=== PATIENT | female | born 1980 | race Caucasian/White ===

== ENCOUNTER 2022-12-15 16:37 | Outpatient (CLI) | payer OTHER, SELFPAY ==
[2022-12-15 14:05] LABS: Chloride* 106 mmol/L (96-114); Sodium* 140 mmol/L (135-149)
[2022-12-15 14:06] LABS: Potassium* 4.6 mmol/L (3.6-5.1)
[2022-12-15 14:08] LABS: Blood Urea Nitrogen* 18 mg/dL (5-24); Carbon Dioxide* 29 mmol/L (20-32); Cholesterol* 181 mg/dL (90-199); Creatinine* 0.8 mg/dL (0.5-1.5); Estimated Glomerular Filt Rate 94 ml/min; Glucose* 96 mg/dL (60-115)
[2022-12-15 14:09] LABS: Calcium* 8.8 mg/dL (8.4-10.6); HDL Cholesterol* 65 mg/dL (>=50); LDL Cholesterol Calculated 100 mg/dL (<100); Triglycerides* 80 mg/dL (40-149)
== END 2022-12-15 16:38 | disposition home or self-care (01) ==
PROVIDERS: PCP Emergency Medicine; Visit Provider Emergency Medicine
DX: D69.3 Immune thrombocytopenic purpura (principal); E78.1 Pure hyperglyceridemia
CPT/HCPCS: 80048; 80061

== ENCOUNTER 2023-02-15 13:47 | Outpatient (REF) | payer OTHER, SELFPAY ==
[2023-02-15 14:18] LABS: Appearance Urine Clear (Clear); Bilirubin Urine Negative (Negative); Blood Urine Negative (Negative); Color Urine Yellow (Yellow); Glucose Urine Negative (Negative); Ketones Urine Negative (Negative); Leukocyte Esterase Urine Negative (Negative); Nitrite Urine Negative (Negative); Protein Urine Negative (Negative); Specific Gravity Urine 1.015 (1.000-1.030); Urobilinogen Urine 0.2 (0.2-1.0); pH Urine 7.5 (5.0-8.5)
[2023-02-15 14:19] LABS: Basophils Percent Auto 0.9 % (0.0-3.0); Eosinophils Percent Auto 1.3 % (0.0-7.0); Hematocrit 40.8 % (33.0-51.0); Hemoglobin* 13.6 gm/dL (12.0-16.0); Immature Granulocytes Pct Auto 0.3 %; Lymphocytes Percent Auto 32.8 % (20-44); Mean Corpuscular HGB Conc 33 gm/dL (32-36); Mean Corpuscular Hemoglobin 29 pg (26-34); Mean Corpuscular Volume 88 fL (80-100); Monocytes Percent Auto 11.4 % (0.0-11.0); Neutrophils Percent Auto 53.3 % (42.0-72.0); Platelet Count* 67 K/uL (140-440); RDW Coefficient of Variation % 12.1 % (11.5-15.5); Red Blood Count 4.64 m/uL (4.00-5.20); White Blood Count* 3.17 K/uL (4.50-11.00)
[2023-02-15 14:28] LABS: Creatinine* 0.7 mg/dL (0.5-1.5); Estimated Glomerular Filt Rate 109 ml/min
[2023-02-15 14:29] LABS: Aspartate Amino Transferase* 47 U/L (12-35)
[2023-02-15 14:36] LABS: Slide Review Reflex Yes
[2023-02-15 14:38] LABS: C Reactive Protein* < 0.5 mg/dL (0.5-1.0)
[2023-02-15 14:39] LABS: RBC Urine 0-2 (0-2); Squamous Epithelial Cell Urine Few (None-Few); WBC Urine 0-2 (0-5)
[2023-02-15 14:44] LABS: Slide Review Acceptable Review (Acceptable)
[2023-02-16 21:58] LABS: Complement Component 4 15 mg/dL (10-40)
== END 2023-02-15 13:48 | disposition home or self-care (01) ==
LOC: NPINS 13:47
PROVIDERS: PCP Emergency Medicine
DX: M35.00 Sjogren syndrome, unspecified (principal)
CPT/HCPCS: 81001; 82565; 84450; 85025; 86140; 86160

== ENCOUNTER 2023-04-26 15:08 | Outpatient (CLI) | payer OTHER, SELFPAY ==
--- NOTE | 2023-04-26 15:20 | CRLHL7_ITS ---
For Patients: As a result of the Cures Act, medical imaging exams and procedure reports are released immediately into your electronic medical record. You may view this report before your referring provider. If you have questions, please contact your health care provider. BILATERAL SCREENING MAMMOGRAM WITH COMPUTER-AIDED DETECTION AND TOMOSYNTHESIS TECHNIQUE: CC and MLO views were obtained. These mammographic images have been obtained using full-field digital technique. These mammographic images were interpreted with the benefit of computer-aided detection. Breast tomosynthesis was used in this interpretation. COMPARISON FILM: 11/04/19, 01/22/18. FINDINGS: The breasts are extremely dense, which lowers the sensitivity of mammography. IMPRESSION: There is no radiographic evidence for malignancy. ASSESSMENT: BI-RADS Category 1: Negative RECOMMENDATION: Routine screening mammogram in 1 year. A lay language report of this examination will be provided to the patient. DAR MAY M.D. Diagnostic/Nuclear Medicine Radiologist [email or web address] JAYDEN:[email or web address] Transcribed: 04/27/2023, 2:[address]/Dictated by: Dar May MD @ 04/27/2023 8:52:00 AM (Electronically Signed)
== END 2023-04-26 15:09 | disposition home or self-care (01) ==
LOC: MAMMO 15:09
PROVIDERS: PCP Emergency Medicine; Visit Provider Emergency Medicine
DX: Z12.31 Encounter for screening mammogram for malignant neoplasm of breast (principal); R92.2 Inconclusive mammogram
CPT/HCPCS: 77063; 77067

== ENCOUNTER 2023-05-31 08:52 | Outpatient (CLI) | payer OTHER, SELFPAY | END 2023-05-31 08:53 | disposition home or self-care (01) | LOC: NFLDREF 06-01 13:48 | PROVIDERS: PCP Emergency Medicine; Referring Provider Emergency Medicine; Visit Provider Emergency Medicine | DX: R74.01 Elevation of levels of liver transaminase levels (principal); D69.3 Immune thrombocytopenic purpura; D72.819 Decreased white blood cell count, unspecified | CPT/HCPCS: 80076 ==

== ENCOUNTER 2024-04-29 11:24 | Outpatient (CLI) | payer OTHER, SELFPAY ==
--- NOTE | 2024-04-29 11:30 | CRLHL7_ITS ---
For Patients: As a result of the Century Cures Act, medical imaging exams and procedure reports are released immediately into your electronic medical record. You may view this report before your referring provider. If you have questions, please contact your health care provider. BILATERAL SCREENING MAMMOGRAM WITH COMPUTER-AIDED DETECTION AND TOMOSYNTHESIS TECHNIQUE: CC and MLO views were obtained. These mammographic images have been obtained using full-field digital technique. These mammographic images were interpreted with the benefit of computer-aided detection. Breast Tomosynthesis was used in this interpretation. COMPARISON FILM: 04/26/23, 11/04/19, 01/22/18. FINDINGS: The breasts are heterogeneously dense, which may obscure small masses. IMPRESSION: There is no radiographic evidence for malignancy. ASSESSMENT: BI-RADS Category 1: Negative RECOMMENDATION: Routine screening mammogram in 1 year. A lay language report of this examination will be provided to the patient. Misael Hamilton M.D. Diagnostic Radiologist [email or web address] SP/Dictated by: Misael Hamilton MD @ 05/06/2024 12:26:00 PM (Electronically Signed)
== END 2024-04-29 11:25 | disposition home or self-care (01) ==
LOC: MAMMO 11:24
PROVIDERS: PCP Emergency Medicine; Visit Provider Emergency Medicine
DX: Z12.31 Encounter for screening mammogram for malignant neoplasm of breast (principal); R92.2 Inconclusive mammogram
CPT/HCPCS: 77063; 77067

== ENCOUNTER 2024-06-19 13:15 | Outpatient (CLI) | payer OTHER, SELFPAY | END 2024-06-19 13:16 | disposition home or self-care (01) | PROVIDERS: PCP Emergency Medicine; Visit Provider Emergency Medicine | DX: Z01.419 Encounter for gynecological examination (general) (routine) without abnormal findings (principal); E61.1 Iron deficiency; E53.8 Deficiency of other specified B group vitamins; R74.01 Elevation of levels of liver transaminase levels; R53.83 Other fatigue; D69.3 Immune thrombocytopenic purpura | CPT/HCPCS: 80053; 82607; 82728; 84443 ==